=== PATIENT | female | born 1960 | race Caucasian/White ===

== ENCOUNTER → 2021-03-22 10:40 | Outpatient (CLI) | payer MEDICARE, SELFPAY ==
[2021-03-22 19:13] LABS: Ur Creatinine Normal (Normal); Ur Specific Gravity Normal (Normal); Urine Benzodiazepines Positive (Negative); Urine Oxycodone Positive (Negative); Urine Tetrahydrocannabinol Negative (Negative); Urine pH Normal (Normal)
[2021-03-22 19:14] LABS: UR Morphine/Opiate cutoff 300 Negative (Negative); Urine Amphetamines Negative (Negative); Urine Barbiturates Negative (Negative); Urine Cocaine Negative (Negative); Urine MDMA Negative (Negative); Urine Methadone Negative (Negative); Urine Methamphetamines Negative (Negative); Urine Phencyclidine Negative (Negative); Urine Tricyclic Antidepressant Negative (Negative)
[2021-03-22 19:17] LABS: Add Manual Diff / Slide Review NO; Basophils Absolute Auto 0 /uL (0-100); Basophils Percent Auto 1.1 % (0-2); Eosinophils Absolute Auto 200 /uL (0-450); Eosinophils Percent Auto 5.2 % (2-4); Hematocrit 39.4 % (36-46); Hemoglobin 12.6 g/dL (12.0-16.0); Lymphocytes Absolute Auto 2400 /uL (1100-4500); Lymphocytes Percent Auto 55.9 % (25-40); Mean Corpuscular HGB Conc 31.9 % (30-36); Mean Corpuscular Hemoglobin 29.1 PG (26-34); Mean Corpuscular Volume 91.4 fL (80-100); Monocytes Absolute Auto 200 /uL (0-900); Monocytes Percent Auto 5.3 % (3-14); Neutrophils Absolute Auto 1400 /uL (1500-7000); Neutrophils Percent Auto 32.5 % (50-75); Platelet Count 252 X10^3/uL (150-400); Red Blood Cell Count 4.31 X10^6/uL (4.0-5.2); White Blood Cell Count 4.3 X10^3/uL (4.5-11.0)
[2021-03-22 19:24] LABS: HEMOLYSIS < 15 (0-50); Iron 87 ug/dL (37-170)
[2021-03-22 19:26] LABS: Alanine Aminotransferase 13 IU/L (<35); Albumin 4.2 g/dL (3.5-5.0); Albumin Globulin Ratio 1.4 (1.0-2.8); Alkaline Phosphatase 61 U/L (38-126); Aspartate Aminotransferase 26 IU/L (14-36); BUN Creatinine Ratio 16.1 (6-22); Bilirubin Total 0.5 mg/dL (0.2-1.3); Blood Urea Nitrogen 10 mg/dL (7-17); Calcium 9.6 mg/dL (8.4-10.2); Carbon Dioxide 31 mmol/L (22-32); Chloride 103 mmol/L (98-107); Cholesterol 263 mg/dL (140-199); Estimated Glomerular Filt Rate > 60.0 mL/min (>60); Globulin 2.9 g/dL (1.7-4.1); Glucose 104 mg/dL (80-110); HDL Cholesterol 70 mg/dL (40-60); HEMOLYSIS < 15 (0-50); LDL Cholesterol Calculated 128 mg/dL (<100); Sodium 140 mmol/L (137-145); Total Protein 7.1 g/dL (6.3-8.2); Triglycerides 323 mg/dL (35-150)
[2021-03-22 19:37] LABS: Percent Iron Saturation 29 % (15-50); Total Iron Binding Capacity 305 ug/dL (265-497); Transferrin 269 mg/dL (206-381)
[2021-03-22 19:56] LABS: Thyroid Stimulating Hormone 0.721 uIU/mL (0.47-4.68)
== END ==
PROVIDERS: PCP Family Medicine; Visit Provider Physician Assistant
DX: F11.90 Opioid use, unspecified, uncomplicated (principal); Z79.899 Other long term (current) drug therapy; Z13.6 Encounter for screening for cardiovascular disorders; G89.4 Chronic pain syndrome; R53.83 Other fatigue; R79.89 Other specified abnormal findings of blood chemistry; R25.1 Tremor, unspecified
CPT/HCPCS: 80053; 80061; 80305; 83540; 83550; 84443; 85025

== ENCOUNTER → 2021-06-14 11:57 | Outpatient (CLI) | payer MEDICARE, SELFPAY ==
--- NOTE | 2021-06-14 12:00 | DI.RAD.S_ITS ---
PROCEDURE: XR LUMBAR SPINE MIN 4V INDICATIONS: Scoliosis lumbar radiculopathy TECHNIQUE: 5 views of the lumbar spine were acquired, including bilateral oblique views. COMPARISON: None. FINDINGS: Bones: 5 nonrib-bearing vertebrae are present. There is normal normal bony alignment. No acute vertebral body compression fractures. No suspicious bony lesions. Multilevel lumbar spondylosis and facet arthropathy most pronounced in the thoracolumbar junction and lower lumbar spine. There are degenerative endplate changes, mild disc space loss, and small endplate osteophytes. Findings are most pronounced at L1-2 and L5-S1. Facet arthropathy most pronounced from L3-4 through L5-S1. Soft tissues: Overlying bowel gas pattern is normal. No suspicious soft tissue calcifications. Moderate fecal burden seen throughout the colon most pronounced in the ascending colon. Oblique images: No pars defects. IMPRESSION: Lumbar spine without acute osseous abnormalities. Multilevel lumbar spondylosis. No evidence for pars defects. Dictated by: Oswaldo Burns M.D. on 06/14/2021 at 15:47 Approved by: Oswaldo Burns M.D. on 06/14/2021 at 15:49
== END ==
PROVIDERS: PCP Physician Assistant Medical; Referring Provider Physical Medicine & Rehabilitation; Visit Provider Physical Medicine & Rehabilitation
DX: M47.26 Other spondylosis with radiculopathy, lumbar region (principal); M47.27 Other spondylosis with radiculopathy, lumbosacral region; M54.50 Low back pain, unspecified; M41.9 Scoliosis, unspecified; J44.9 Chronic obstructive pulmonary disease, unspecified; G89.29 Other chronic pain
CPT/HCPCS: 72110; 99214

== ENCOUNTER → 2021-07-20 08:25 | Outpatient (CLI) | payer MEDICARE, SELFPAY | PROVIDERS: PCP Physician Assistant Medical; Visit Provider Physician Assistant Medical | DX: Z79.899 Other long term (current) drug therapy (principal); F11.90 Opioid use, unspecified, uncomplicated; G89.4 Chronic pain syndrome; M41.20 Other idiopathic scoliosis, site unspecified; G25.0 Essential tremor; J44.9 Chronic obstructive pulmonary disease, unspecified; M54.16 Radiculopathy, lumbar region | CPT/HCPCS: 80321 ==

== ENCOUNTER → 2021-08-16 11:49 | Outpatient (CLI) | payer MEDICARE, SELFPAY | PROVIDERS: PCP Physician Assistant Medical; Referring Provider Physician Assistant Medical; Visit Provider Physician Assistant Medical | DX: R30.0 Dysuria (principal); F11.90 Opioid use, unspecified, uncomplicated; G89.4 Chronic pain syndrome; M54.16 Radiculopathy, lumbar region; Z79.899 Other long term (current) drug therapy | CPT/HCPCS: 80321; 87086 ==

== ENCOUNTER → 2021-09-13 11:48 | Outpatient (CLI) | payer MEDICARE, SELFPAY ==
[2021-09-13 18:47] LABS: Add Manual Diff / Slide Review NO; Basophils Absolute Auto 0 /uL (0-100); Basophils Percent Auto 0.7 % (0-2); Eosinophils Absolute Auto 100 /uL (0-450); Eosinophils Percent Auto 2.5 % (2-4); Hematocrit 39.3 % (36-46); Hemoglobin 13.3 g/dL (12.0-16.0); Lymphocytes Absolute Auto 2100 /uL (1100-4500); Lymphocytes Percent Auto 46.6 % (25-40); Mean Corpuscular HGB Conc 33.8 % (30-36); Mean Corpuscular Hemoglobin 30.6 PG (26-34); Mean Corpuscular Volume 90.5 fL (80-100); Monocytes Absolute Auto 300 /uL (0-900); Monocytes Percent Auto 6.3 % (3-14); Neutrophils Absolute Auto 1900 /uL (1500-7000); Neutrophils Percent Auto 43.9 % (50-75); Platelet Count 253 X10^3/uL (150-400); Red Blood Cell Count 4.35 X10^6/uL (4.0-5.2); Red Cell Distribution Width 13.8 % (11.6-14.8); White Blood Cell Count 4.4 X10^3/uL (4.5-11.0)
[2021-09-13 19:13] LABS: Alanine Aminotransferase 12 IU/L (<35); Albumin 4.7 g/dL (3.5-5.0); Albumin Globulin Ratio 1.6 (1.0-2.8); Alkaline Phosphatase 50 U/L (38-126); Aspartate Aminotransferase 27 IU/L (14-36); Bilirubin Total 0.5 mg/dL (0.2-1.3); Blood Urea Nitrogen 8 mg/dL (7-17); Calcium 9.9 mg/dL (8.4-10.2); Carbon Dioxide 30 mmol/L (22-32); Chloride 101 mmol/L (98-107); Estimated Glomerular Filt Rate > 60.0 mL/min (>60); Gamma Glutamyl Transpeptidase 31 U/L (12-43); Glucose 112 mg/dL (80-110); HEMOLYSIS < 15 (0-50); Potassium 4.1 mmol/L (3.4-5.1); Sodium 139 mmol/L (137-145); Total Protein 7.7 g/dL (6.3-8.2)
[2021-09-19 14:36] LABS: Ethyl Glucuronide Screen Negative ng/mL (Cutoff=500)
== END ==
PROVIDERS: PCP Physician Assistant Medical; Visit Provider Physician Assistant Medical
DX: Z79.899 Other long term (current) drug therapy (principal); F11.90 Opioid use, unspecified, uncomplicated; J44.9 Chronic obstructive pulmonary disease, unspecified; R25.1 Tremor, unspecified; R53.83 Other fatigue; R79.89 Other specified abnormal findings of blood chemistry; M41.125 Adolescent idiopathic scoliosis, thoracolumbar region; M54.16 Radiculopathy, lumbar region; M85.80 Other specified disorders of bone density and structure, unspecified site
CPT/HCPCS: 80053; 80321; 82977; 84443; 85025

== ENCOUNTER → 2022-09-06 11:30 | Outpatient (CLI) | payer MEDICARE, SELFPAY | PROVIDERS: PCP Family Medicine; Visit Provider Physician Assistant Medical | DX: Z79.899 Other long term (current) drug therapy (principal) | CPT/HCPCS: 87086 ==

== ENCOUNTER → 2022-09-19 09:18 | Outpatient (CLI) | payer MEDICARE, SELFPAY | PROVIDERS: PCP Family Medicine; Visit Provider Physician Assistant Medical | DX: N23 Unspecified renal colic (principal) | CPT/HCPCS: 87086 ==

== ENCOUNTER → 2022-12-18 11:09 | Outpatient (CLI) | payer MEDICARE, SELFPAY ==
--- NOTE | 2023-01-02 10:20 | PM.PFT.1 ---
Pulmonary Function Test Referral & Results Date Patient Seen: 12/18/22 Results: This Is A Rest And Exercise Oximetry And Oxygen Titration Study Patient's resting oxygen saturation was 98% with a pulse of 87 At 50 ft patient's room air oxygen saturation was 98% with pulse of 90 At 150 ft patient's room air saturation was 100% with pulse of 92 At 250 ft patient's room air saturation was 96% and pulse was 93 At 350 ft patient's room air saturation was 97% with pulse of 92 At 500 ft patient's room air saturation was 97% with pulse of 94 At 600 ft patient's room air saturation was 97% with pulse of 92 3 minutes post exercise room air saturation was 99% with pulse of 94
== END ==
PROVIDERS: PCP Physician Assistant Medical; Referring Provider Internal Medicine Pulmonary Disease; Visit Provider Internal Medicine Pulmonary Disease
DX: J44.9 Chronic obstructive pulmonary disease, unspecified (principal)
CPT/HCPCS: 94010; 94618

== ENCOUNTER → 2023-01-30 11:23 | Outpatient (CLI) | payer MEDICARE, SELFPAY ==
--- NOTE | 2023-01-30 11:27 | DI.CT.S_ITS ---
PROCEDURE: CT CHEST W CON INDICATIONS: possible hilar lymphadenopathy TECHNIQUE: After the administration of intravenous contrast, 5 mm thick sections acquired from the pulmonary apices to the posterior costophrenic angles. 1 mm axial lung, 5 mm thick coronal and sagittal reformats and 7 mm axial MIP were acquired. For radiation dose reduction, the following was used: automated exposure control, adjustment of mA and/or kV according to patient size. COMPARISON: [facility]), CR, XR CHEST 2V, 01/15/2023, 14:04. [facility]), CR, XR CHEST 2V, 01/18/2023, 11:22. FINDINGS: Image quality: Excellent. Lungs and pleura: Residual superior segment right upper lobe pneumonia. No suspicious pulmonary nodules. Patchy subtle bilateral upper lobe focal areas of small infiltrate. No pleural effusions or pneumothorax. Central and peripheral airways are patent and normal in caliber. Mediastinum: Heart size is normal. No pericardial effusion. No mediastinal or hilar adenopathy by size criteria. There are prominent right hilar and right paratracheal lymph nodes, which most likely are reactive in nature. On image 29/2, there are 2 right hilar lymph nodes which measure 1.3 cm and 1.4 cm respectively. On image 23/2 is a right paratracheal lymph node measuring 1.3 x 1.4 cm. Thoracic aorta and central pulmonary arteries are normal in size. Esophagus is normal in caliber. No hiatal hernia. Bones and chest wall: No suspicious bony lesions. No vertebral body compression fractures. No axillary or supraclavicular adenopathy by size criteria. Thyroid gland is unremarkable. Peripherally calcified mammoplasties. Abdomen: Visualized upper abdominal solid organs appear normal. Upper abdominal bowel loops are normal in caliber. IMPRESSION: 1. Continued residual superior segment right upper lobe pneumonia. 2. Subtle patchy focal bilateral upper lobe infiltrates. 3. Prominent right hilar lymph nodes and right paratracheal lymph node are consistent with reactive adenopathy. Comment: Recommend continued progress chest films until pneumonia clears. Dictated by: Darshan Aguayo M.D. on 01/30/2023 at 17:04 Approved by: Darshan Aguayo M.D. on 01/30/2023 at 17:15
[2023-01-30 12:02] LABS: BUN Creatinine Ratio 18.7 (6-22); Blood Urea Nitrogen 14 mg/dL (7-17); Estimated Glomerular Filt Rate > 60 mL/min (>60)
== END ==
PROVIDERS: PCP Physician Assistant Medical; Referring Provider Physician Assistant Medical; Visit Provider Physician Assistant Medical
DX: J18.9 Pneumonia, unspecified organism (principal); J44.9 Chronic obstructive pulmonary disease, unspecified; R59.0 Localized enlarged lymph nodes; Z01.812 Encounter for preprocedural laboratory examination
CPT/HCPCS: 36415; 71260; 82565; 84520; Q9967